=== PATIENT | female | born 1950 | race Caucasian/White ===

== ENCOUNTER 2017-09-04 09:29 | Day surgery (SDC) | payer MEDICARE, BC ==
[~2017-09-04 09:29] MED LIST: LIDOCAINE HCL 1% MPF SOL ONE; PROPOFOL 500 MG/50 ML EMU IV ONE
[2017-09-04 11:36] VITALS: BP 114/71; PULSE 72; RESP 20; TEMP 97.1; O2SAT 95
== END 2017-09-04 11:50 | disposition home or self-care (01) | DRG 951 ==
LOC: SURG 09:29
PROVIDERS: ATTEND Surgery
DX: Z12.11 Encounter for screening for malignant neoplasm of colon (principal); D12.2 Benign neoplasm of ascending colon; Z80.0 Family history of malignant neoplasm of digestive organs
CPT/HCPCS: J2001; J2704